=== PATIENT | female | born 1990 | race Caucasian/White ===

== ENCOUNTER 2024-06-16 16:00 | Outpatient (CLI) | payer OTHER, SELFPAY ==
[2024-06-16 18:46] LABS: Microscopic, Urine URINE MICROSCOPIC (MICROSCOPIC)
[2024-06-16 18:54] LABS: Appearance,Urine CLEAR (Clear); Bilirubin,Urine Negative (Negative); Blood, Urine 2+ (Negative); Color,Urine YELLOW (Yellow); Glucose,Urine (UA) Negative (Negative); Ketones,Urine Negative (Negative); Leukocyte Esterase,Urine Negative (Negative); Nitrate,Urine Negative (Negative); Protein,Urine Negative (Negative); Urobilinogen,Urine 0.2 EU/dl (0.2)
[2024-06-16 19:00] LABS: Basophils % 0.7 % (0.1-2.0); Eosinophils # 0.1 K/mm3 (0.0-0.4); Eosinophils % 1.4 % (0.1-12.0); Hematocrit 34.9 % (37.0-47.0); Hemoglobin 11.6 g/dL (12.2-16.2); Lymphocytes # 1.8 K/mm3 (0.7-4.5); Lymphocytes % 30.7 % (10-50); Mean Corpuscular HGB Conc 33.2 g/dL (31.8-35.4); Mean Corpuscular Hemoglobin 30.2 pg (27.0-31.2); Mean Corpuscular Volume 90.9 fl (81-99); Mean Platelet Volume 10.2 fl (7.4-10.4); Monocytes # 0.3 K/mm3 (0.1-1.0); Monocytes % 5.3 % (1.7-9.3); Neutrophils # 3.6 K/mm3 (1.8-7.8); Neutrophils % 61.9 % (37.0-80.0); Platelet Count 264 K/mm3 (142-424); Red Blood Count 3.84 M/mm3 (4.20-5.40); White Blood Count 5.8 K/mm3 (4.8-10.8)
[2024-06-16 19:30] LABS: Creatinine,Urine Random 55 mg/dL (Not Estab.); Microalbumin < 6.000 mg/L (0-16.7)
[2024-06-16 19:52] LABS: Bacteria,Urine Trace /lpf; RBC,Urine Occasional #/hpf (0-3); WBC,Urine Occasional #/hpf (0-3)
[2024-06-16 20:07] LABS: Erythrocyte Sedimentation Rate 18 mm/hr (0-20)
[2024-06-16 20:20] LABS: Hemoglobin A1C 4.9 % (4.0-6.0)
[2024-06-16 21:02] LABS: Alanine Aminotransferase 13 U/L (12-78); Albumin Level 4.1 g/dl (3.5-5.0); Albumin/Globulin Ratio 1.6 (1.1-1.8); Alkaline Phosphatase 39 U/L (38-126); Anion Gap 12.6 mEq/L (5-15); Aspartate Amino Transferase 21 U/L (14-36); Bilirubin,Total 0.5 mg/dl (0.2-1.3); Blood Urea Nitrogen 17 mg/dl (7-17); Calcium 9.8 mg/dl (8.4-10.2); Carbon Dioxide 26 mmol/L (22.0-30.0); Chloride 105 mmol/L (98-107); Estimated Glomerular Filt Rate 72 ml/min (>60); GFR (African American) 87 ML/MIN (>60); Globulin 2.6 g/dL (1.3-3.2); Glucose 86 mg/dl (74-100); Potassium 4.6 mmoL/L (3.5-5.1); Sodium 139 mmol/L (136-145); Total Protein,Serum 6.7 g/dl (6.3-8.2)
[2024-06-16 21:14] LABS: C-Reactive Protein 1.4 mg/L (0-4)
[2024-06-16 21:32] LABS: 25-OH Vitamin D, Total 45.7 ng/mL (30-100)
[2024-06-16 21:48] LABS: Thyroid Stimulating Hormone 0.27 uIU/mL (0.465-4.68)
[2024-06-16 22:07] LABS: Vitamin B12 999 pg/mL (239-931)
[2024-06-18 08:13] LABS: RA Latex Turbid. <10.0 IU/mL (<14.0)
[2024-06-18 12:20] LABS: Anti-Centromere B Antibodies 0.6 AI (0.0-0.9); Anti-DNA (DS) Ab Qn <1 IU/mL (0-9); Anti-Jo-1 <0.2 AI (0.0-0.9); Anti-Smith Antibody <0.2 AI (0.0-0.9); Antichromatin Antibodies <0.2 AI (0.0-0.9); Antiscleroderma-70 Antibodies <0.2 AI (0.0-0.9); RNP Antibodies <0.2 AI (0.0-0.9); Sjogren's Anti-SS-A <0.2 AI (0.0-0.9); Sjogren's Anti-SS-B <0.2 AI (0.0-0.9)
[2024-06-20 16:02] LABS: Antinuclear Antibodies, IFA POSITIVE
== END 2024-06-16 23:59 | disposition home or self-care (01) ==
LOC: LAB.DROPOF 06-18 12:48
PROVIDERS: PCP Nurse Practitioner; Visit Provider Nurse Practitioner
DX: M54.42 Lumbago with sciatica, left side (principal); M54.41 Lumbago with sciatica, right side; Z84.1 Family history of disorders of kidney and ureter; R76.8 Other specified abnormal immunological findings in serum; Z13.1 Encounter for screening for diabetes mellitus
CPT/HCPCS: 80053; 81001; 82043; 82306; 82570; 82607; 83036; 84443; 84550; 85025; 85651; 86038; 86140; 86225; 86235; 86431

== ENCOUNTER 2024-06-17 07:48 | Outpatient (CLI) | payer OTHER, SELFPAY ==
--- NOTE | 2024-06-17 07:55 | XR_ITS ---
FINAL REPORT CLINICAL HISTORY: bilateral low back pain with bilateral sciatica..no trauma COMPARISON: None FINDINGS: 3 views of the lumbar spine were obtained. There is no evidence of fracture. There is no malalignment. The vertebrae are normal in height. Disc spaces are preserved. No paraspinous soft tissue abnormalities identified. IMPRESSION: No acute process. Reviewed, Interpreted and Dictated by Mello Oviedo MD Transcribed by Katlin Hall Authenticated and [facility]
== END 2024-06-17 23:59 | disposition home or self-care (01) ==
PROVIDERS: PCP Nurse Practitioner; Visit Provider Nurse Practitioner
DX: M54.42 Lumbago with sciatica, left side (principal); M54.41 Lumbago with sciatica, right side
CPT/HCPCS: 72100; 80053; 81001; 82043; 82306; 82570; 82607; 83036; 84443; 84550; 85025; 85651; 86038; 86140; 86225; 86235; 86431

== ENCOUNTER 2024-06-18 07:48 | Outpatient (CLI) | payer OTHER, SELFPAY ==
[2024-06-18 09:28] LABS: Free T4 (Free Thyroxine) 1.13 ng/dl (0.78-2.19)
[2024-06-18 09:44] LABS: Thyroid Stimulating Hormone 0.29 uIU/mL (0.465-4.68)
--- NOTE | 2024-06-18 10:30 | MR_ITS ---
FINAL REPORT TECHNIQUE: Multiplanar MR, without and with gadolinium enhancement CLINICAL HISTORY: bilateral low back pain with bilateral sciatica chronic lbp, nki COMPARISON: None FINDINGS: Sagittal images show normal vertebral height. Alignment is normal. Marrow signal pattern is unremarkable. L1-2: Unremarkable L2-3: Unremarkable L3-4: Unremarkable L4-5: Unremarkable L5-S1: Moderate annular disc bulge. Borderline central canal stenosis. Mild bilateral neural foraminal narrowing. IMPRESSION: Moderate degenerative changes of the lumbosacral junction as above. Reviewed, Interpreted and Dictated by Mello Oviedo MD Transcribed by Karma Ellington Authenticated and [facility]
[2024-06-18] MEDS: GADOTERIDOL INJ 20ML SYRINGE 14 ML IV (11:45)
[2024-06-18] MEDS: SODIUM CHLORIDE 0.9% 10ML SYR (RAD ONLY) 10 ML IV (11:45)
[2024-06-19 08:13] LABS: Triiodothyronine (T3) Free 2.6 pg/mL (2.0-4.4); Triiodothyronine (T3) Total 78 ng/dL (71-180)
== END 2024-06-18 23:59 | disposition home or self-care (01) ==
PROVIDERS: PCP Nurse Practitioner; Visit Provider Nurse Practitioner
DX: N30.01 Acute cystitis with hematuria (principal); M54.42 Lumbago with sciatica, left side; M54.41 Lumbago with sciatica, right side; R79.89 Other specified abnormal findings of blood chemistry
CPT/HCPCS: 36415; 72158; 84439; 84443; 84480; 84481; 87086; A9576

== ENCOUNTER 2024-07-01 07:57 | Outpatient (RCR) | payer OTHER, SELFPAY ==
--- NOTE | 2024-07-01 10:01 | HMH.PTOPEV ---
PT Outpatient Evaluation Rehab PT Outpatient Evaluation Start: 07/01/24 08:04 Freq: Status: Active Protocol: Document 07/01/24 08:04 TORITO (Rec: 07/01/24 09:44 TORITO [id number]) E-signed By Julio Epstein, PT Outpatient Therapy Subjective History Subjective History Pt is a 33 yof who is referred to [facility] outpatient PT with complaints of LBP that has been present on/off for a few years. She reports that she had an MRI last week that showed a disc protrusion at L5 -S1. She reports that bending forward seems to be her biggest difficulty. She reports that she has improved since she began drinking more water and staying hydrated. 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 The pt reports that when her pain is flared up she has difficulty moving her legs, getting in/ out of the car. She describes the pain as central low back pain that refers into both hips and into both thighs. She reports that seldomly, she will have a tingling sensation into both feet. Pt describes her back pain as episodic that occur approximately once a month. Pt reports, I don't think I need PT. Things have absolutely gotten better. 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 Chief Complaint Pain Symptom Type Sharp,Tingling Symptoms Aggravated By Sitting,Standing,Bending/ Stooping,Lifting Prior Functional Limitations None Current Functional Limitations Lifting,Housework,Dressing, Sleeping,Standing,Squatting, Recreation Activity,Walking, Stairs,Balance Symptom Description Intermittent,Activity Dependent Level of pain today (0-10) 0 Pain scale - at its best (0-10) 0 Pain scale - at its worst (0-10) 9 Lumbopelvic Eval Posture Thoracic Spine Posture Standing Position Neutral Lumbar Spine Posture Standing Position Neutral Assistive device Assistive Devices None / NA Miscellaneous Dx PT Eval Objective Objective TTP: 0/4 to Palpatory Exam ROM: 100% in all lumbar planes MMT: 5/5 to B LEs globally. 0 pain upon clinical exam and unable to recreate symptoms. Outpatient Therapy Assessment Prognosis Rehab Potential Innapropriate for Skilled Therapy Comment Pt presents with no functional impairments. Pt issued HEP of extension-based exercises to trial. Pt instructed to get another PT referral if pain returns or becomes worse. Outpatient Therapy Plan of Care Treatment Plan May Include Therapeutic Activities to Return to Yes Previous Functional/Work Level Frequency Times per week 1 Duration Number of Weeks 1 Addendums This patient is a candidate for social No or vocational rehab? Patient/Guardian verbally acknowledges Yes understanding of treatment program and consents to further treatment? Patient/Guardian verbally acknowledges Yes understanding of diagnosis, prognosis and goals for treatment? Eval Complexity PT Charges 91331 - Low Complexity Shoulder/Elbow Eval Shoulder Objective Measurements Elbow Objective Measurements PHYSICIAN CERTIFICATION: I certify the specified therapy services for Surekha Ann are required, authorized, and reviewed every 30 days.
== END 2024-07-01 23:59 | disposition home or self-care (01) ==
LOC: PT 07:57
PROVIDERS: PCP Nurse Practitioner; Visit Provider Nurse Practitioner
DX: M54.41 Lumbago with sciatica, right side (principal); M54.42 Lumbago with sciatica, left side
CPT/HCPCS: 97163; 97530

== ENCOUNTER 2025-02-26 10:39 | Outpatient (CLI) | payer OTHER, SELFPAY ==
--- NOTE | 2025-02-26 10:44 | XR_ITS ---
FINAL REPORT TECHNIQUE: 3 views sacroiliac joints CLINICAL HISTORY: BACK PAIN, KNEE PAIN, HAND NUMBNESS COMPARISON: None FINDINGS: SACROILIAC JOINTS: AP and lateral views of the sacroiliac joints were obtained. There is no prior exam for comparison. There is no acute fracture or other acute osseous abnormality. The SI joints are symmetric bilaterally. The sacrococcygeal articulation appears within normal limits. No acute soft tissue abnormality is present. IMPRESSION: No abnormality of the SI joints is identified. Reviewed, Interpreted and Dictated by Negrito Lacy MD Transcribed by Audra Person Authenticated and [facility]
== END 2025-02-26 23:59 | disposition home or self-care (01) ==
LOC: RAD 10:39
PROVIDERS: PCP Nurse Practitioner; Visit Provider Internal Medicine Rheumatology
DX: M54.9 Dorsalgia, unspecified (principal); M25.551 Pain in right hip; M25.552 Pain in left hip; R20.0 Anesthesia of skin; R20.2 Paresthesia of skin; R76.89 Other specified abnormal immunological findings in serum; J32.1 Chronic frontal sinusitis; H93.8X9 Other specified disorders of ear, unspecified ear; R53.83 Other fatigue
CPT/HCPCS: 72202